=== PATIENT | male | born 1980 | race Caucasian/White ===

== ENCOUNTER → 2020-02-18 | Outpatient (CLI) | payer BC | END | disposition home or self-care (01) | LOC: RAH 10:55 | PROVIDERS: ATTEND Student in an Organized Health Care Education/Training Program | DX: K40.90 Unilateral inguinal hernia, without obstruction or gangrene, not specified as recurrent (principal) ==

== ENCOUNTER → 2020-03-03 | Outpatient (CLI) | payer BC | END | disposition home or self-care (01) | LOC: RAH 10:02 | PROVIDERS: ATTEND Student in an Organized Health Care Education/Training Program | DX: K40.20 Bilateral inguinal hernia, without obstruction or gangrene, not specified as recurrent (principal) | CPT/HCPCS: 72192 ==